=== PATIENT | female | born 1960 | race Hispanic/Latino ===

== ENCOUNTER 2023-06-15 08:27 | Day surgery (SDC) | payer BC ==
[2023-06-14 10:11] LABS: Absolute Eosinophils 0.4 K/uL (0-0.5); Absolute Lymphocytes (CBC) 1.6 K/uL (0.7-4.9); Absolute Monocytes 0.5 K/uL (0.1-1.3); Absolute Neutrophil 4.6 K/uL (1.8-8.0); Basophils % 0.5 % (0-1.3); Eosinophils % 5.8 % (0-4.4); Hematocrit 36.6 % (36.0-45.0); Hemoglobin 12.6 g/dL (12.0-15.0); Lymphocytes % 21.8 % (15.3-44.8); MCH 29.2 pg (27.0-35.0); MCHC 34.4 g/dL (32.0-36.0); MCV 84.9 fL (80-100); Monocytes % 7.5 % (3.3-12.3); Neutrophils % 64.4 % (41.7-73.7); Platelets 261 thou/uL (152-406); RBC Red Blood Cell Count 4.32 M/uL (3.86-4.86); Red Cell Distribution Width 15.8 % (12.1-15.2)
[2023-06-14 10:20] LABS: PT Prothrombin Time 12.5 SECONDS (9.5-12.5); PTT, Activated Partial Thromb 33.6 SECONDS (24.3-36.9); Protime INR 1.14
[2023-06-14 10:24] LABS: Anion Gap 6.7 mEq/L (5.0-15.0); Potassium 3.7 mEq/L (3.5-5.1)
--- NOTE | 2023-06-14 13:45 | RAD REPORT ---
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 Hypertension COMPARISON: Chest Pa And Lat (2 Views) dated 02/16/2019 TECHNIQUE: Portable AP view of the chest. FINDINGS: The lungs are clear. No pneumothorax or effusion. The cardiomediastinal contours are unre markable. IMPRESSION: No acute cardiopulmonary process.
[2023-06-15] MEDS: NA CHLORIDE 0.9% 500 ML ONE (08:29)
[2023-06-15] MEDS ORDERED: HEPA 1000U/500MLS 2,000 UNIT/1,000 ML BAG IV ONE (08:36)
[2023-06-15] MEDS ORDERED: MIDAZOLAM HCL 2 MG/2 ML INJ ONE (08:36)
[2023-06-15] MEDS ORDERED: FENTANYL CITR 100 MCG/2 ML ONE (08:36)
[2023-06-15] MEDS ORDERED: VERAPAMIL HCL 10 MG/4 ML VIAL IV ONE (08:36)
[2023-06-15] MEDS ORDERED: LIDOCAINE 1% 20 ML MDV ONE (08:37)
[2023-06-15] MEDS ORDERED: HEPARIN 5000 UNIT/ML 1 ML VIAL ONE (08:37)
[2023-06-15 12:22] VITALS: BP 115/59; O2SAT 100
--- NOTE | 2023-06-15 17:11 | OP ---
Date of Procedure: 06/15/2023 Surgeon: Robert Smalls Procedures Performed: 1.Right heart catheterization. 2.Left heart catheterization. 3.Coronary angiogram. Indication For Procedure: Unstable angina, abnormal stress test, and shortness of breath. Access: Right radial and right IJ. Complications: None. Sedation Time: 20 minutes. Estimated Blood Loss: Less than 50 cc. Description Of Procedures: After risks, and benefits, and alternatives were explained to the patient , patient agreed to proceed with the procedures and signed informed consent. The patient was brought back to the lab tech, prepped and draped in a sterile fashion. A right internal jugular artery acce ss was obtained using an ultrasound-guided micropuncture technique. A 7-Swazi sheath was inserted a nd [place] was advanced to obtain the filling pressures. Then the [place] was removed with no complication s. Then, we accessed the right radial artery using ultrasound-guided micropuncture technique, 6-Fren ch sheath inserted. A Olmitz 4.0 catheter was advanced to the LV over a J-wire for LVEDP. Pullback d id not show any gradient. Selective angiograms of the left and right coronary artery systems were pe rformed. Then, the Olmitz 4.0 catheter was removed over a J-wire. The right radial sheath was pulled out and the access was closed with a TR band and the right IJ catheter was removed out and access wa s closed with the manual compression. Patient was moved back to recovery in stable condition. Findings: 1.Left main is normal. 2.LAD is normal. 3.Left circ is normal. 4.RCA is normal. 5.Normal filling pressures. Assessment And Plan: 1.Normal coronary anatomy. 2.Normal filling pressure. Plan will be to continue medical management. OLIVIA/REHAN Voice ID: [id number] Report ID: [id number]
--- NOTE | 2023-06-17 16:59 | EKG ---
Test Date: 2023-06-14 Test Time: 09:53:59 Usability Engineer: MARCI MEASUREMENT RESULTS: Intervals: Rate: 63 NH: 156 QRSD: 76 QT: 370 QTc: 378 [place]: P: 59 NH: 156 QRS: 71 T: 99 INTERPRETIVE STATEMENTS: Normal sinus rhythm Marked ST abnormality, possible lateral subendocardial injury Abnormal ECG No previous ECG available for comparison Electronically Signed On 06-17-23 16:46:13 CDT by Jose Armando Jo
== END 2023-06-15 12:20 | disposition home or self-care (01) ==
LOC: CCL 08:27
PROVIDERS: ATTEND Internal Medicine
DX: I20.0 Unstable angina (principal); R94.39 Abnormal result of other cardiovascular function study; I34.0 Nonrheumatic mitral (valve) insufficiency; I10 Essential (primary) hypertension; E78.2 Mixed hyperlipidemia; E11.9 Type 2 diabetes mellitus without complications; Z87.891 Personal history of nicotine dependence; Z79.82 Long term (current) use of aspirin; Z79.84 Long term (current) use of oral hypoglycemic drugs; Z79.85 Long-term (current) use of injectable non-insulin antidiabetic drugs; Z79.899 Other long term (current) drug therapy; Z82.49 Family history of ischemic heart disease and other diseases of the circulatory system
CPT/HCPCS: 36415; 71045; 76937; 80048; 82947; 85025; 85610; 85730; 93005; 93460; 99152; 99153; C1893; J1644; J2001; J2250; J3010; J7040